=== PATIENT | male | born 1985 | race Caucasian/White ===

== ENCOUNTER 2021-03-07 04:53 | Emergency (ER) | payer MEDICAID ==
[~2021-03-07] VITALS: Ht 177.8 cm; Wt 123.5 kg
[2021-03-07 05:02] VITALS: BP 135/90
--- NOTE | 2021-03-07 05:16 | NUR ---
EKG IN TRIAGE.
--- NOTE | 2021-03-07 05:20 | NUR ---
PT AMBULATED BACK TO LOBBY WITH STEADY GAIT.
--- NOTE | 2021-03-07 05:54 | NUR ---
PT TAKEN TO RAD.
--- NOTE | 2021-03-07 06:01 | NUR ---
PATIENT AMBULATED TO BED #1 WITH STEADY GATE.
--- NOTE | 2021-03-07 06:05 | NUR ---
blood collected and walked to lab.
[2021-03-07 06:25] LABS: BASOPHILS % (AUTO) 0.2 % (0.0-2.0); EOSINOPHILS # (AUTO) 0.2 K/uL (0-0.4); EOSINOPHILS % (AUTO) 1.9 % (0.0-4.0); HEMATOCRIT 39.7 % (36-52); LYMPHOCYTES # (AUTO) 1.4 K/uL (2.0-11.5); LYMPHOCYTES % (AUTO) 17.5 % (20.5-51.1); MEAN CORPUSCULAR HEMOGLOBIN 26 pg (27-31); MEAN CORPUSCULAR HGB CONC 33 g/dL (33-37); MEAN CORPUSCULAR VOLUME 79.4 fL (80-94); MONOCYTES # (AUTO) 0.5 K/uL (0.8-1.0); MONOCYTES % (AUTO) 6.4 % (1.7-9.3); NEUTROPHILS # (AUTO) 5.9 K/uL (1.8-7.7); PLATELET COUNT (AUTO) 427 K/uL (140-450); RED BLOOD CELL COUNT(AUTO) 5.01 MIL/uL (4.20-6.10); RED CELL DISTRIBUTION WIDTH 15.5 % (11.6-13.7)
[2021-03-07 06:34] LABS: ALBUMIN 3.4 g/dL (3.4-5.0); ANION GAP 7.4 (8-16); CARBON DIOXIDE 32.5 mmol/L (21-32); CREATININE 0.9 mg/dL (0.6-1.3); POTASSIUM 3.9 mmol/L (3.5-5.1); TOTAL BILIRUBIN 0.2 mg/dL (0.0-1.0)
--- NOTE | 2021-03-07 06:36 | NUR ---
PATIENT CAME BECAUSE IS BEEN WITH PRESURE AT THE CHEST FOR ONE MONTH AND SAY THAT HAVE GO TO PCP BECAUSE WAS AFRAID VITALS SIGNS IN NORMAL LIMITS SR ON MONITOR
--- NOTE | 2021-03-07 07:11 | NUR ---
Report and continuation of care received from REINIER Browne Addendum: 03/07/21 at 0946 by LESA Pt states left-sided chest pain 11/07, pressure/intermittent, radiating to left upper back. Pt denies nausea, vomiting, fever, chills. NAD; SpO2 98% on room air. Bed locked in lowest position, side rails x 1.
--- NOTE | 2021-03-07 07:35 | NUR ---
Patient presents with both eyes closed in semi-fowlers position. front desk monitor remains in place. VSS; respirations even/unlabored.
[2021-03-07 10:19] VITALS: BP 118/74
== END 2021-03-07 10:25 | disposition home or self-care (01) ==
LOC: MED 04:53
DX: R07.89 Other chest pain (principal); E11.9 Type 2 diabetes mellitus without complications; F12.90 Cannabis use, unspecified, uncomplicated; F15.90 Other stimulant use, unspecified, uncomplicated; Z88.0 Allergy status to penicillin; Z88.6 Allergy status to analgesic agent
CPT/HCPCS: 36415; 71045; 80053; 84484; 85025; 85379; 93005; 99291